=== PATIENT | male | born 1980 | race American Indian/Alaskan Native ===

== ENCOUNTER 2020-09-15 10:36 | Emergency (ER) | payer OTHER ==
--- NOTE | 2020-09-15 10:57 | Emergency Department Report ---
ED General Adult HPI - General Chief complaint: Skin/Abscess/Foreign Body Stated complaint: HARD TO SWALLOW Time Seen by Provider: 09/15/20 10:48 Source: patient Mode of arrival: Ambulatory Limitations: No Limitations - History of Present Illness Initial comments: 40-year-old -[place] Island[place] male presents with complaints of left tonsillar pain and swelling x3 days. He states history of recurrent strep tonsillitis. He rates his pain as a 10/10 in severity states it worsens with swallowing. He denies any difficulty opening his jaw, fever/chills/sweats, chest pain, shortness of breath, or cough. No prior medical history per patient. - Related Data Previous Rx's Medication Instructions Recorded Last Taken Type Clindamycin [Clindamycin CAP] 300 mg PO Q6H 10 Days #40 capsule 09/15/20 Unknown Rx predniSONE [Deltasone] 20 mg PO BID 3 Days #6 tab 09/15/20 Unknown Rx Allergies Allergy/AdvReac Type Severity Reaction Status Date / Time No Known Allergies Allergy Unverified 09/15/20 10:44 ED Review of Systems ROS: Stated complaint: HARD TO SWALLOW Other details as noted in HPI Constitutional: denies: chills, diaphoresis, fever, malaise, weakness ENT: throat pain. denies: ear pain Respiratory: denies: cough, shortness of breath Cardiovascular: denies: chest pain Gastrointestinal: denies: abdominal pain, nausea, vomiting, diarrhea Genitourinary: denies: urgency Musculoskeletal: denies: joint swelling Skin: denies: rash, lesions, change in color Hematological/Lymphatic: denies: swollen glands ED Past Medical Hx - Past Medical History Previous Medical History?: No - Surgical History Past Surgical History?: No - Social History Smoking Status: Current Every Day Smoker - Medications Home Medications: Home Medications Medication Instructions Recorded Confirmed Last Taken Type Clindamycin [Clindamycin CAP] 300 mg PO Q6H 10 Days #40 capsule 09/15/20 Unknown Rx predniSONE [Deltasone] 20 mg PO BID 3 Days #6 tab 09/15/20 Unknown Rx ED Physical Exam - General Limitations: No Limitations General appearance: alert, in no apparent distress - Head Head exam: Present: atraumatic, normocephalic - Eye Eye exam: Present: normal appearance - ENT ENT exam: Present: mucous membranes moist - Expanded ENT Exam Expanded Mouth exam: Present: tongue normal. Absent: drooling, trismus, muffled voice Throat exam: Positive: tonsillomegaly (Left-sided), other (Uvula is midline). Negative: tonsillar exudate - Neck Neck exam: Present: full ROM, lymphadenopathy (Minimal left anterior cervical) - Respiratory Respiratory exam: Present: normal lung sounds bilaterally. Absent: respiratory distress - Cardiovascular Cardiovascular Exam: Present: regular rate - Back Exam Back exam: Present: full ROM - Neurological Exam Neurological exam: Present: alert, oriented X3, normal gait - Psychiatric Psychiatric exam: Present: normal affect, normal mood - Skin Skin exam: Present: warm, dry, intact, normal color. Absent: rash, cyanosis, diaphoretic, ecchymosis ED Course Vital Signs 09/15/20 10:44 Temperature 98.8 F Pulse Rate 96 H Respiratory 18 Rate Blood Pressure 166/115 O2 Sat by Pulse 100 Oximetry ED Medical Decision Making - Medical Decision Making 40-year-old -[place] male presents with complaints of left tonsillar pain and swelling x3 days. He states history of recurrent strep tonsillitis. He rates his pain as a 10/10 in severity states it worsens with swallowing. He denies any difficulty opening his jaw, fever/chills/sweats, chest pain, shortness of breath, or cough. No prior medical history per patient. No trismus, drooling, or muffled voice noted on exam. Patient swallowing without difficulty. Ultrasound of the neck is negative for peritonsillar abscess strep is negative. Will treat with clindamycin and steroids. Discussed signs and symptoms of peritonsillar abscess that should prompt immediate return to the emergency department in detail patient who verbalizes understanding. Recommend follow-up with primary care provider. Critical care attestation.: If time is entered above; I have spent that time in minutes in the direct care of this critically ill patient, excluding procedure time. ED Disposition Clinical Impression: Elevated blood pressure reading Acute tonsillitis Qualifiers: Pharyngitis/tonsillitis etiology: other specified organisms Qualified Code(s): J03.80 - Acute tonsillitis due to other specified organisms; J03.8 - Acute tonsillitis due to other specified organisms Disposition: - TO HOME OR SELFCARE Is pt being admited?: No Condition: Stable Instructions: Tonsillitis, Hypertension, Adult Prescriptions: Clindamycin [Clindamycin CAP] 300 mg PO Q6H 10 Days #40 capsule predniSONE [Deltasone] 20 mg PO BID 3 Days #6 tab Referrals: KULDEEP HDEZ MD [Staff Physician] - 2-3 Days PRIMARY CARE,MD [Primary Care Provider] - 3-5 Days (blood pressure)
--- NOTE | 2020-09-15 13:40 | Ultrasound Report ---
ULTRASOUND SOFT TISSUE HEAD AND NECK HISTORY: Left peritonsillar swelling, rule out abscess TECHNIQUE: Grayscale ultrasound with color Doppler imaging. COMPARISON: None. FINDINGS: Targeted ultrasound was performed in both submandibular regions. There are multiple enlarged lymph no daniel in the left submandibular region with the largest measuring 4.6 x 1.5 x 1.8 cm. No right submandi bular adenopathy is appreciated. No fluid collection consistent with abscess is appreciated. IMPRESSION: Multiple enlarged left submandibular lymph nodes. No abscess is identified on ultrasound. If further evaluation is needed, CT neck with contrast is recommended. Signer Name: Juan Thrasher Jr, MD Signed: 09/15/2020 1:36 PM Workstation Name: [id number]
[2020-09-15 14:25] VITALS: BP 153/101
== END 2020-09-15 14:55 | disposition home or self-care (01) ==
LOC: ED 10:36
DX: R03.0 Elevated blood-pressure reading, without diagnosis of hypertension (principal); J03.90 Acute tonsillitis, unspecified; F17.200 Nicotine dependence, unspecified, uncomplicated; Z79.899 Other long term (current) drug therapy
CPT/HCPCS: 76536; 87116; 87430

== ENCOUNTER 2021-02-17 10:47 | Emergency (ER) | payer SELFPAY ==
[2021-02-17 10:55] VITALS: BP 159/89
== END 2021-02-17 11:13 | disposition left against medical advice (07) ==
LOC: ED 10:47
DX: M54.2 Cervicalgia (principal); Z53.21 Procedure and treatment not carried out due to patient leaving prior to being seen by health care provider

== ENCOUNTER 2022-03-19 08:53 | Emergency (ER) | payer SELFPAY ==
[2022-03-19 09:10] VITALS: BP 154/86
[2022-03-19] MEDS ORDERED: LIDOCAINE (1%) 10 MG/1 ML VIAL 20 ML MDV INFILTRATI ONE (10:26)
[2022-03-19] MEDS ORDERED: IBUPROFEN 600 MG TAB PO ONE (10:26)
[2022-03-19] MEDS ORDERED: TETANUS,DIPH,PERTUSS(ACELL) VACCINE 0.5 ML SYRINGE IM ONE (10:26)
--- NOTE | 2022-03-19 11:32 | Emergency Department Report ---
- General Chief Complaint: Wound/Laceration Stated Complaint: RIGHT LEG CUT Source: patient Mode of arrival: Ambulatory Limitations: No Limitations - History of Present Illness Initial Comments: Patient is a 41-year-old male with no past medical history presents to the ED with complaint of acute onset persistent painful bleeding posterior right lower leg laceration wound after he accidentally stepped back while mowing the lawn and treat 2-week accidentally cut his posterior right lower leg about 2 hours ago. Patient states that the pain and the bleeding been persistent. Patient states that he is not up-to-date with his tetanus vaccinations. Patient denies dizziness, syncope, fall, nausea and vomiting, numbness and tingling or weakness of lower extremities bilaterally. -: hour(s) (2) Location: other (Posterior right lower leg) Extremity Location: Right: Lower Leg (posterior right lower leg) Place: home Patient Tetanus UTD: No Context: accidental, sharp object use Associated Symptoms: pain. denies: loss of feeling/numbness, suspect foreign body present, unable to move injured part, weakness followed by dizziness, nausea/vomiting - Related Data Previous Rx's Medication Instructions Recorded Last Taken Type Clindamycin [Clindamycin CAP] 300 mg PO Q6H 10 Days #40 capsule 09/15/20 Unknown Rx predniSONE [Deltasone] 20 mg PO BID 3 Days #6 tab 09/15/20 Unknown Rx Ibuprofen [Motrin] 800 mg PO Q8HR PRN #24 tablet 03/19/22 Unknown Rx cephALEXin [Keflex] 500 mg PO Q8HR #30 cap 03/19/22 Unknown Rx Allergies Allergy/AdvReac Type Severity Reaction Status Date / Time No Known Allergies Allergy Unverified 09/15/20 10:44 ED Review of Systems ROS: Stated complaint: RIGHT LEG CUT Other details as noted in HPI Constitutional: denies: chills, fever Eyes: denies: eye pain, eye discharge, vision change ENT: denies: ear pain, throat pain Respiratory: denies: cough, shortness of breath, wheezing Cardiovascular: denies: chest pain, palpitations Endocrine: no symptoms reported Gastrointestinal: denies: abdominal pain, nausea, diarrhea Genitourinary: denies: urgency, dysuria Musculoskeletal: arthralgia (posterior right lower leg laceration wound). denies: back pain, joint swelling Skin: other (Bleeding posterior right lower leg laceration wound). denies: rash, lesions Neurological: denies: headache, weakness, paresthesias Psychiatric: denies: anxiety, depression Hematological/Lymphatic: denies: easy bleeding, easy bruising ED Past Medical Hx - Past Medical History Previous Medical History?: No - Surgical History Past Surgical History?: No - Social History Smoking Status: Current Every Day Smoker - Medications Home Medications: Home Medications Medication Instructions Recorded Confirmed Last Taken Type Clindamycin [Clindamycin CAP] 300 mg PO Q6H 10 Days #40 capsule 09/15/20 Unknown Rx predniSONE [Deltasone] 20 mg PO BID 3 Days #6 tab 09/15/20 Unknown Rx Ibuprofen [Motrin] 800 mg PO Q8HR PRN #24 tablet 03/19/22 Unknown Rx cephALEXin [Keflex] 500 mg PO Q8HR #30 cap 03/19/22 Unknown Rx ED Physical Exam - General Limitations: No Limitations General appearance: alert, in no apparent distress - Head Head exam: Present: atraumatic, normocephalic, normal inspection - Eye Eye exam: Present: normal appearance, PERRL, EOMI Pupils: Present: normal accommodation - ENT ENT exam: Present: normal exam, normal orophraynx, mucous membranes moist, TM's normal bilaterally, normal external ear exam - Neck Neck exam: Present: normal inspection, full ROM. Absent: tenderness - Respiratory Respiratory exam: Present: normal lung sounds bilaterally. Absent: respiratory distress, wheezes, rales, rhonchi, stridor, chest wall tenderness, accessory muscle use, decreased breath sounds, prolonged expiratory - Cardiovascular Cardiovascular Exam: Present: regular rate, normal rhythm, normal heart sounds. Absent: systolic murmur, diastolic murmur, rubs, gallop - GI/Abdominal GI/Abdominal exam: Present: soft, normal bowel sounds. Absent: tenderness, guarding, rebound, hyperactive bowel sounds, hypoactive bowel sounds, organomegaly, mass - Extremities Exam Extremities exam: Present: normal inspection, full ROM, tenderness (Palpable localized posterior right lower leg due to a bleeding 4 cm laceration wound), normal capillary refill, calf tenderness (posterior right lower leg laceration) - Back Exam Back exam: Present: normal inspection, full ROM. Absent: tenderness, CVA tenderness (R), CVA tenderness (L), muscle spasm, paraspinal tenderness, vertebral tenderness - Neurological Exam Neurological exam: Present: alert, oriented X3, CN II-XII intact, normal gait, reflexes normal - Psychiatric Psychiatric exam: Present: normal affect, normal mood - Skin Skin exam: Present: warm, dry, intact, normal color, other (Bleeding 4 cm laceration wound on posterior right lower leg). Absent: rash ED Course Vital Signs 03/19/22 09:00 Temperature 98.2 F Pulse Rate 74 Respiratory 16 Rate Blood Pressure 154/86 [Left] O2 Sat by Pulse 96 Oximetry - Laceration /Wound Repair Right Lower Posterior Distal Leg Wound Location: lower extremity (posterior right lower leg) Wound Length (cm): 4 Wound's Depth, Shape: superficial, linear Wound Explored: contaminated Irrigated w/ Saline (ccs): 200 Betadine Prep?: Yes Anesthesia: 1% Lidocaine Volume Anesthetic (ccs): 6 Wound Debrided: extensive Wound Repaired With: sutures Suture Size/Type: 3:0, proline Number of Sutures: 8 Layer Closure?: No Sterile Dressing Applied?: Yes Progress: The wound was extensively cleaned with normal saline and betadine solution. Lidocaine 1% solution was infiltrated around the wound and when anestehsia was fuilly achieved, the wound was sutured per protocol using proline 3-0 sutures for a total of 8 sutures. The wound was then dressed appropriately. The patient tolerated procedure well. ED Medical Decision Making - Medical Decision Making This is a 41-year-old male with no past medical history presents to the ED with complaint of acute onset persistent painful bleeding posterior right lower leg laceration wound after he accidentally stepped back while mowing the lawn and treat 2-week accidentally cut his posterior right lower leg about 2 hours ago. Patient states that the pain and the bleeding been persistent. Patient states that he is not up-to-date with his tetanus vaccinations. In the ED, patient is alert and oriented x3 and is in no acute distress. Patient received booster tetanus vaccination in the ED. Patient was treated for pain in the ED. The procedure right lower leg bleeding laceration was extensively cleaned with normal saline and Betadine solutions. Lidocaine 1% solution was infiltrated around the wound as a local anesthetic. When anesthesia was fully achieved, the wound was sutured per protocol and the patient tolerated the procedure well. The wound was sutured with Prolene 3-0 sutures for a total of 8 sutures. The wound was then dressed appropriately and the patient was discharged home on pain medication and prophylactic antibiotics and advised to follow-up with his primary care physician in 7 to 10 days for reevaluation or return to the ED immediately if symptoms get worse. Patient was also advised to return to the ED or to his primary care physician in 12 to 14 days for suture removal. - Differential Diagnosis Leg laceration; leg puncture wound; leg injury Critical care attestation.: If time is entered above; I have spent that time in minutes in the direct care of this critically ill patient, excluding procedure time. ED Disposition Clinical Impression: Laceration of right lower leg without complication Qualifiers: Encounter type: initial encounter Qualified Code(s): S81.811A - Laceration without foreign body, right lower leg, initial encounter Disposition: HOME / SELF CARE / HOMELESS Is pt being admited?: No Does the pt Need Aspirin: No Condition: Stable Instructions: Sutured Wound Care, [id number], Sutures, [place], or Adhesive Wound Closure, [id number], Laceration Care, Adult, [id number] Additional Instructions: Take medication with food, drink plenty of fluids and follow-up with your primary care physician in 7 to 10 days for reevaluation. Return to the ED immediately if symptoms get worse. Otherwise return to the ED or to your primary care physician in 12 to 14 days for suture removal. Prescriptions: cephALEXin [Keflex] 500 mg PO Q8HR #30 cap Ibuprofen [Motrin] 800 mg PO Q8HR PRN #24 tablet PRN Reason: Pain , Severe (7-10) Referrals: [facility] [Provider Group] - 7-10 days Time of Disposition: 11:38 Print Language: [place]
== END 2022-03-19 12:01 | disposition home or self-care (01) ==
LOC: ED 08:53
DX: S81.811A Laceration without foreign body, right lower leg, initial encounter (principal); W22.8XXA Striking against or struck by other objects, initial encounter; Y93.89 Activity, other specified; Y92.89 Other specified places as the place of occurrence of the external cause; Y99.8 Other external cause status
CPT/HCPCS: 90471; 90715; 99282

== ENCOUNTER 2022-04-02 09:31 | Emergency (ER) | payer SELFPAY ==
[2022-04-02 09:45] VITALS: BP 131/78
== END 2022-04-02 13:00 | disposition left against medical advice (07) ==
LOC: ED 09:31
DX: Z48.02 Encounter for removal of sutures (principal); Z53.21 Procedure and treatment not carried out due to patient leaving prior to being seen by health care provider

== ENCOUNTER 2022-04-05 08:22 | Emergency (ER) | payer SELFPAY ==
[2022-04-05 09:02] VITALS: BP 146/78
--- NOTE | 2022-04-05 09:14 | Emergency Department Report ---
ED General Adult HPI - General Chief complaint: Skin/Abscess/Foreign Body Stated complaint: STICHES REMOVAL Time Seen by Provider: 04/05/22 09:03 Source: patient Mode of arrival: Ambulatory Limitations: No Limitations - History of Present Illness Initial comments: 41-year-old male with no significant past medical history reports to the ER for suture removal. Patient reports no acute symptoms at this time. Patient was seen about 2 weeks ago here to have sutures placed. Patient reports he was visiting a week ago but the ER was busy. Patient reports no signs of infection, no chills no fever no drainage from suture site. - Related Data Previous Rx's Medication Instructions Recorded Last Taken Type Clindamycin [Clindamycin CAP] 300 mg PO Q6H 10 Days #40 capsule 09/15/20 Unknown Rx predniSONE [Deltasone] 20 mg PO BID 3 Days #6 tab 09/15/20 Unknown Rx Ibuprofen [Motrin] 800 mg PO Q8HR PRN #24 tablet 03/19/22 Unknown Rx cephALEXin [Keflex] 500 mg PO Q8HR #30 cap 03/19/22 Unknown Rx Allergies Allergy/AdvReac Type Severity Reaction Status Date / Time No Known Allergies Allergy Verified 04/05/22 09:02 ED Review of Systems ROS: Stated complaint: STICHES REMOVAL Other details as noted in HPI Comment: All other systems reviewed and negative Skin: other (Sutures to right lower leg and) ED Past Medical Hx - Past Medical History Previous Medical History?: No - Social History Smoking Status: Current Every Day Smoker - Medications Home Medications: Home Medications Medication Instructions Recorded Confirmed Last Taken Type Clindamycin [Clindamycin CAP] 300 mg PO Q6H 10 Days #40 capsule 09/15/20 Unkn own Rx predniSONE [Deltasone] 20 mg PO BID 3 Days #6 tab 09/15/20 Unknown Rx Ibuprofen [Motrin] 800 mg PO Q8HR PRN #24 tablet 03/19/22 Unknown Rx cephALEXin [Keflex] 500 mg PO Q8HR #30 cap 03/19/22 Unknown Rx ED Physical Exam - General Limitations: No Limitations ED Course Vital Signs 04/05/22 08:59 Temperature 98.1 F Pulse Rate 59 L Respiratory 18 Rate Blood Pressure 146/78 [Left] O2 Sat by Pulse 98 Oximetry Critical care attestation.: If time is entered above; I have spent that time in minutes in the direct care of this critically ill patient, excluding procedure time. ED Disposition Clinical Impression: Visit for suture removal Disposition: 01 HOME / SELF CARE / HOMELESS Is pt being admited?: No Condition: Stable Instructions: Incision Care, Adult, [id number], Wound Closure Removal, Care After Time of Disposition: 09:15
== END 2022-04-05 09:34 | disposition home or self-care (01) ==
LOC: ED 08:22
DX: S81.811D Laceration without foreign body, right lower leg, subsequent encounter (principal); M79.661 Pain in right lower leg; F17.200 Nicotine dependence, unspecified, uncomplicated; Z79.899 Other long term (current) drug therapy; X58.XXXD Exposure to other specified factors, subsequent encounter
CPT/HCPCS: 99282